=== PATIENT | female | born 1970 ===

== ENCOUNTER 2021-09-10 16:45 | Emergency (ER) | payer OTHER ==
[~2021-09-10] VITALS: Ht 154.9 cm; Wt 90.7 kg
[2021-09-10] MEDS ORDERED: Amoxicillin500 MG PO (17:51)
[2021-09-10] MEDS ORDERED: NEOPOLHCSU LEFTEAR (17:51)
== END 2021-09-10 18:37 | disposition home or self-care (01) ==
LOC: ER 16:45
DX: H60.92 Unspecified otitis externa, left ear (principal); H66.91 Otitis media, unspecified, right ear
CPT/HCPCS: A9270